=== PATIENT | male | born 1965 | race Hispanic/Latino ===

== ENCOUNTER 2020-04-01 12:40 | Inpatient (IN) | payer OTHER, SELFPAY ==
[~2020-04-01 12:40] MED LIST: Dexamethasone 20 MG/5 ML VIAL ONE; Lidocaine 1% PF 5 ML VIAL ONE; Metoclopramide HCl 10 MG/2 ML VIAL ONE; Ondansetron PF 4 MG/2 ML Vial ONE; PHENYLEPHRINE-NS 100 MCG/ML 10 ML SYRINGE ONE; PROPOFOL 200 MG/20 ML VIAL ONE
--- NOTE | 2020-04-01 13:13 | RAD ---
Portable frontal chest radiograph: 04/01/2020 COMPARISON: None HISTORY: Injury, trauma, pain FINDINGS: Supine imaging of the chest demonstrates no focal consolidation or alveolar edema. There is mild elevation of the right hemidiaphragm. Heart and mediastinal contours appear grossly unremarkable. The supine nature of this examination limits assessment for pleural fluid and pneumotho rax. The inferior lateral right hemithorax is not fully imaged on this exam. IMPRESSION: Grossly unremarkable supine portable chest radiograph.
[2020-04-01 13:17] LABS: #Basophils 0.1 thou/uL (0.0-0.2); #Monocytes 1.6 thou/uL (0.11-0.59); #Neutrophils 16.2 thou/uL (1.40-6.50); %Basophils 0.3 % (0.0-1.0); %Eosinophils 0.2 % (0.0-10.0); %Lymphocytes 5.1 % (21.0-51.0); %Monocytes 8.4 % (0.0-10.0); Hemoglobin 15.4 g/dL (14.0-18.0); Mean Corpuscular HGB CONC 33.8 g/dL (32.0-36.0); Mean Corpuscular Volume 88.8 fL (78.0-98.0); Mean Platelet Volume 9.2 fL (7.4-10.4); Platelet Count 171 thou/uL (130-400); RBC Distribution Width 12.1 % (11.5-14.5); Red Blood Cell (RBC) Count 5.11 mill/uL (4.70-6.10); White Blood Cell (WBC) Count 18.8 thou/uL (4.8-10.8)
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
[2020-04-01 13:45] LABS: Anion Gap 17 mmol/L (10-20); BUN (Urea Nitrogen) 18 mg/dL (8.4-25.7); Calc. Creatinine Clearance 0 mL/min (70-130); Calcium 8.4 mg/dL (7.8-10.44); Carbon Dioxide 18 mmol/L (22-29); Chloride 110 mmol/L (98-107); Glucose 140 mg/dL (70-105); Potassium 4.8 mmol/L (3.5-5.1); Sodium 140 mmol/L (136-145)
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
[2020-04-01] MEDS ORDERED: Fentanyl 100 MCG/2 ML VIAL ONE ×4 (17:30→21:04)
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
[2020-04-01] MEDS ORDERED: traMADol HCl 50 MG TAB PO PRN ×2 (18:32)
[2020-04-01] MEDS ORDERED: Dextrose 5% in Water 1,000 ML IV PRN (18:32)
[2020-04-01] MEDS ORDERED: Ondansetron PF 4 MG/2 ML Vial IVP PRN (18:32)
[2020-04-01] MEDS ORDERED: Ondansetron ODT 4 MG TAB PO PRN (18:32)
[2020-04-01] MEDS ORDERED: Dextrose 50% Abboject 50 ML SYRINGE SLOW IVP PRN (18:32)
[2020-04-01] MEDS ORDERED: hydrALAZINE 20 MG/ML VIAL SLOW IVP PRN (18:32)
[2020-04-01] MEDS ORDERED: Promethazine HCl 25 MG/ML VIAL SLOW IVP PRN (18:47)
[2020-04-01] MEDS ORDERED: Promethazine HCl 25 MG/ML VIAL IM PRN (18:47)
[2020-04-01] MEDS ORDERED: Ondansetron HCl/PF 4 MG/2 ML Vial IVP PRN (18:47)
[2020-04-01] MEDS ORDERED: CEFAZOLIN 2 GM in Premix Bag 1 BAG IVPB SCH (22:00)
[2020-04-01 22:59] VITALS: BMI 46.6
[2020-04-01] MEDS: Famotidine 20 MG TAB PO SCH (23:48)
[2020-04-01] MEDS: Cyclobenzaprine 10 MG TAB PO PRN (23:48)
[2020-04-01] MEDS: Acetaminophen 325 MG TAB PO SCH (23:48)
[2020-04-01] MEDS: Morphine 2 MG/ML VIAL SLOW IVP PRN (23:49)
[2020-04-01] MEDS: Ibuprofen 600 MG TAB PO SCH (23:49)
[2020-04-02] MEDS: CEFAZOLIN 2 GM in Premix Bag 1 BAG IVPB SCH ×2 (02:28→09:58)
[2020-04-02] MEDS: Ibuprofen 600 MG TAB PO SCH ×3 (05:32→19:45)
[2020-04-02] MEDS: Acetaminophen 325 MG TAB PO SCH ×3 (05:33→18:24)
[2020-04-02 06:10] LABS: #Basophils 0.1 thou/uL (0.0-0.2); #Lymphocytes 1.4 thou/uL (1.20-3.40); #Monocytes 1.1 thou/uL (0.11-0.59); #Neutrophils 10.3 thou/uL (1.40-6.50); %Basophils 0.9 % (0.0-1.0); %Eosinophils 0.1 % (0.0-10.0); %Monocytes 8.8 % (0.0-10.0); %Neutrophils 79.2 % (42.0-75.0); Mean Corpuscular HGB CONC 33.9 g/dL (32.0-36.0); Mean Corpuscular Hemoglobin 30.1 pg (27.0-31.0); Mean Corpuscular Volume 88.6 fL (78.0-98.0); Mean Platelet Volume 9.4 fL (7.4-10.4); Platelet Count 154 thou/uL (130-400); RBC Distribution Width 12.1 % (11.5-14.5); Red Blood Cell (RBC) Count 4.31 mill/uL (4.70-6.10)
[2020-04-02 06:26] LABS: Phosphorus 3.7 mg/dL (2.3-4.7)
[2020-04-02 06:31] LABS: Anion Gap 16 mmol/L (10-20); BUN (Urea Nitrogen) 22 mg/dL (8.4-25.7); Calc. Creatinine Clearance 143 mL/min (70-130); Calcium 8.2 mg/dL (7.8-10.44); Carbon Dioxide 21 mmol/L (22-29); Chloride 105 mmol/L (98-107); Glucose 149 mg/dL (70-105); Magnesium 1.8 mg/dL (1.6-2.6); Potassium 4.1 mmol/L (3.5-5.1); Sodium 138 mmol/L (136-145)
--- NOTE | 2020-04-02 07:50 | RAD ---
PORTABLE CHEST: HISTORY: Followup pneumothorax. COMPARISON: 04/01/2020. FINDINGS: No evidence of infiltrate. No evidence of pneumothorax. Heart and mediastinum unremarkable. IMPRESSION: No acute process or interval change. POS: AGW
--- NOTE | 2020-04-02 09:06 | CT ---
CT Pelvis WO Con History: Fracture evaluation Comparison: None. Findings: Indwelling Zuniga catheter with large volume gas within the urinary bladder. Large volume he morrhage within the prevesicular space. Moderate bilateral pelvic sidewall hematomas. Hemorrhage along the right inguinal canal. The pubic symphysis is widened to 15 mm. Right acetabulum: Transverse and posterior wall fracture with 3 mm calcific body on expected location of the ligamentum teres of the fovea of the femur. Posterior wall fracture involves approximately 15-20% of the total articular surface is displaced posteriorly centimeter and laterally up to 2 cm. T he posterior wall fracture is multi fragmentary. Very subtle widening of the right anterior SI joint. The right posterior SI joint is a very small fra cture of the ilium the posterior inferior SI joint at the ligamentous insertion. A subtle widening of the left anterior SI joint with small avulsion of the left sacrum at S1 and S2. Coronal oblique fracture of the left ilium extending from the SI joint to the posterior wall of the ileum without extension into the acetabulum. No left acetabular fracture. No obturator ring fracture. The coccyx is intact. No central sacral fracture aside from the SI joint ligamentous avulsions. Impression: 1. Right acetabular transverse and posterior wall fracture with comminution of the posterior wall fra cture along with 3-4 mm body in the expected location of the ligamentum teres at the femoral fovea. 2. Pubic symphyseal diastases of 15 mm. 3. Nondisplaced left ilium fracture extending from the SI joint and exiting the greater sciatic notch . 4. Small bilateral anterior superior sacral portions of the anterior site joint ligaments from osseou s avulsion. 5. Right posterior inferior SI joint ligament avulsion. 6. No vertical step-off of the SI joints. 7. Large volume hemorrhage within the prevesicular space and along the right inguinal canal. 8. Partial avulsion of the tip left ischial spine.
[2020-04-02] MEDS: Famotidine 20 MG TAB PO SCH ×2 (09:58→19:45)
[2020-04-02] MEDS: Morphine 2 MG/ML VIAL SLOW IVP PRN (12:15)
[2020-04-02] MEDS: Sodium Chloride 0.9% 1,000 ML IV SCH ×4 (14:01→23:58)
[2020-04-02] MEDS ORDERED: Magnesium 2 GM/50 ML 2 GM in Premix Bag 1 BAG IVPB SCH (17:00)
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
[2020-04-02] MEDS ORDERED: Morphine 4 MG/ML VIAL SLOW IVP PRN (21:07)
[2020-04-02] MEDS: Acetaminophen 500 MG TAB PO SCH (23:56)
[2020-04-02] MEDS: traMADol HCl 50 MG TAB PO SCH (23:56)
[2020-04-02] MEDS: Gabapentin 300 MG CAP PO SCH (23:56)
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
[2020-04-03] MEDS: traMADol HCl 50 MG TAB PO SCH ×4 (05:46→23:50)
[2020-04-03] MEDS: Ibuprofen 600 MG TAB PO SCH ×3 (05:46→19:53)
[2020-04-03] MEDS: Acetaminophen 500 MG TAB PO SCH ×4 (05:46→23:50)
[2020-04-03 07:54] LABS: ALT (SGPT) 36 U/L (8-55); AST (SGOT) 63 U/L (5-34); Albumin 3.1 g/dL (3.5-5.0); Alkaline Phosphatase 52 U/L (40-110); Anion Gap 10 mmol/L (10-20); BUN (Urea Nitrogen) 21 mg/dL (8.4-25.7); Bilirubin, Total 0.6 mg/dL (0.2-1.2); CK (CPK) 3650 U/L (30-200); Calc. Creatinine Clearance 180 mL/min (70-130); Calcium 7.3 mg/dL (7.8-10.44); Carbon Dioxide 26 mmol/L (22-29); Chloride 106 mmol/L (98-107); Globulin 2.3 g/dL (2.4-3.5); Glucose 103 mg/dL (70-105); Magnesium 2.1 mg/dL (1.6-2.6); Phosphorus 2.6 mg/dL (2.3-4.7); Potassium 3.7 mmol/L (3.5-5.1); Protein, Total 5.4 g/dL (6.0-8.3); Sodium 138 mmol/L (136-145)
[2020-04-03 08:47] LABS: #Eosinphils 0.1 thou/uL (0.0-0.7); #Lymphocytes 2.7 thou/uL (1.20-3.40); #Monocytes 0.8 thou/uL (0.11-0.59); #Neutrophils 5.7 thou/uL (1.40-6.50); %Basophils 0.4 % (0.0-1.0); %Eosinophils 0.9 % (0.0-10.0); %Lymphocytes 29.1 % (21.0-51.0); %Monocytes 8.4 % (0.0-10.0); %Neutrophils 61.2 % (42.0-75.0); Hemoglobin 10.2 g/dL (14.0-18.0); Mean Corpuscular HGB CONC 34.3 g/dL (32.0-36.0); Mean Corpuscular Volume 90.4 fL (78.0-98.0); Mean Platelet Volume 8.6 fL (7.4-10.4); Platelet Count 96 thou/uL (130-400); Platelet Morphology Comment Appears Decreased; RBC Distribution Width 11.9 % (11.5-14.5); RBC Morphology Normal; Red Blood Cell (RBC) Count 3.29 mill/uL (4.70-6.10); White Blood Cell (WBC) Count 9.4 thou/uL (4.8-10.8)
[2020-04-03] MEDS: Gabapentin 300 MG CAP PO SCH ×3 (09:03→19:53)
[2020-04-03] MEDS: Famotidine 20 MG TAB PO SCH ×2 (09:03→19:53)
[2020-04-03] MEDS: Sodium Chloride 0.9% 1,000 ML IV SCH ×3 (14:15→23:41)
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
[2020-04-03] MEDS ORDERED: Potassium Phosphate 30 MMOL in Sodium Chloride 0.9% 250 ML 250 ML IVPB SCH (19:00)
[2020-04-03] MEDS: Ascorbic Acid 500 mg Chewable Tablet PO SCH (19:53)
[2020-04-03] MEDS: Cyclobenzaprine 10 MG TAB PO PRN (19:53)
[2020-04-03] MEDS: Enoxaparin Sodium 30 MG/0.3 ML SYRINGE SC SCH (23:30)
[2020-04-04] MEDS: Ibuprofen 600 MG TAB PO SCH ×3 (03:22→23:02)
[2020-04-04] MEDS: traMADol HCl 50 MG TAB PO SCH ×4 (03:22→23:02)
[2020-04-04] MEDS: Acetaminophen 500 MG TAB PO SCH ×4 (03:22→23:01)
[2020-04-04] MEDS: Sodium Chloride 0.9% 1,000 ML IV SCH ×3 (05:39→20:32)
[2020-04-04 05:42] LABS: Hemoglobin 10.4 g/dL (14.0-18.0); Mean Corpuscular HGB CONC 33.5 g/dL (32.0-36.0); Mean Corpuscular Hemoglobin 29.9 pg (27.0-31.0); Mean Corpuscular Volume 89.3 fL (78.0-98.0); Mean Platelet Volume 8.5 fL (7.4-10.4); Platelet Count 124 thou/uL (130-400); RBC Distribution Width 11.8 % (11.5-14.5); Red Blood Cell (RBC) Count 3.46 mill/uL (4.70-6.10)
[2020-04-04 06:06] LABS: Anion Gap 12 mmol/L (10-20); BUN (Urea Nitrogen) 21 mg/dL (8.4-25.7); CK (CPK) 3507 U/L (30-200); Calc. Creatinine Clearance 187 mL/min (70-130); Calcium 7.7 mg/dL (7.8-10.44); Carbon Dioxide 25 mmol/L (22-29); Chloride 106 mmol/L (98-107); Glucose 103 mg/dL (70-105); Magnesium 2.1 mg/dL (1.6-2.6); Phosphorus 4.5 mg/dL (2.3-4.7); Potassium 4.4 mmol/L (3.5-5.1); Sodium 139 mmol/L (136-145)
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
[2020-04-04] MEDS: Ascorbic Acid 500 mg Chewable Tablet PO SCH ×2 (08:00→20:23)
[2020-04-04] MEDS: Ferrous Sulfate 325 MG TAB PO SCH ×2 (08:00→17:04)
[2020-04-04] MEDS: Enoxaparin Sodium 30 MG/0.3 ML SYRINGE SC SCH ×2 (08:06→20:23)
[2020-04-04] MEDS: Famotidine 20 MG TAB PO SCH ×2 (08:06→20:24)
[2020-04-04] MEDS: Gabapentin 300 MG CAP PO SCH ×3 (08:06→20:24)
[2020-04-04] MEDS ORDERED: CEFAZOLIN 2 GM in Premix Bag 1 BAG IVPB SCH (09:00)
[2020-04-04] MEDS ORDERED: Lidocaine 2% PF 5 ML VIAL ONE (09:01)
[2020-04-04] MEDS ORDERED: Midazolam HCl 2 mg/2 ml Vial ONE ×2 (09:01→09:28)
[2020-04-04] MEDS ORDERED: Fentanyl 100 MCG/2 ML VIAL ONE ×3 (09:01→12:48)
[2020-04-04] MEDS ORDERED: Tranexamic Acid 1,000 MG/10 ML VIAL ONE (10:31)
[2020-04-04] MEDS ORDERED: Ropivacaine 0.5% HCl/PF (150 MG/30 ML VIAL) ONE (11:17)
--- NOTE | 2020-04-04 11:45 | RAD ---
RIGHT HIP 3 VIEWS: HISTORY: Right acetabular fracture, ORIF. FINDINGS: Three views done intraoperatively demonstrate placement of metal plate and screws stabilizing the com minuted right acetabular fracture with improved position and alignment. IMPRESSION: Intraoperative open reduction internal fixation image documentation. POS: RRE
[2020-04-04] MEDS ORDERED: Promethazine HCl 25 MG/ML VIAL IM PRN (12:03)
[2020-04-04] MEDS ORDERED: Promethazine HCl 25 MG/ML VIAL SLOW IVP PRN (12:03)
[2020-04-04] MEDS ORDERED: Ondansetron HCl/PF 4 MG/2 ML Vial IVP PRN (12:03)
[2020-04-04] MEDS ORDERED: PROPOFOL 200 MG/20 ML VIAL ONE (12:12)
[2020-04-04] MEDS ORDERED: PHENYLEPHRINE-NS 100 MCG/ML 10 ML SYRINGE ONE (12:12)
[2020-04-04] MEDS ORDERED: Rocuronium Bromide 10 MG/ML (10ML VIAL) ONE (12:12)
[2020-04-04] MEDS ORDERED: Dexamethasone 20 MG/5 ML VIAL ONE (12:12)
[2020-04-04] MEDS ORDERED: Lidocaine 1% PF 5 ML VIAL ONE (12:12)
[2020-04-04] MEDS ORDERED: Ondansetron PF 4 MG/2 ML Vial ONE (12:12)
[2020-04-04] MEDS ORDERED: Glycopyrrolate 0.2 MG/ML 5 ML SYRINGE ONE (12:12)
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
[2020-04-04] MEDS: CEFAZOLIN 2 GM in Premix Bag 1 BAG IVPB SCH ×2 (15:04→23:03)
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
[2020-04-05] MEDS: Sodium Chloride 0.9% 1,000 ML IV SCH ×3 (01:47→17:47)
[2020-04-05] MEDS: Acetaminophen 500 MG TAB PO SCH ×4 (05:35→23:45)
[2020-04-05] MEDS: Ibuprofen 600 MG TAB PO SCH ×3 (05:35→22:18)
[2020-04-05] MEDS: traMADol HCl 50 MG TAB PO SCH ×4 (05:35→23:46)
[2020-04-05 05:57] LABS: Hemoglobin 8.5 g/dL (14.0-18.0); Mean Corpuscular Hemoglobin 30.2 pg (27.0-31.0); Mean Corpuscular Volume 88.8 fL (78.0-98.0); Mean Platelet Volume 8.5 fL (7.4-10.4); Platelet Count 140 thou/uL (130-400); RBC Distribution Width 11.8 % (11.5-14.5); Red Blood Cell (RBC) Count 2.83 mill/uL (4.70-6.10); White Blood Cell (WBC) Count 8.7 thou/uL (4.8-10.8)
[2020-04-05 06:20] LABS: Anion Gap 10 mmol/L (10-20); BUN (Urea Nitrogen) 20 mg/dL (8.4-25.7); CK (CPK) 2462 U/L (30-200); Calc. Creatinine Clearance 177 mL/min (70-130); Calcium 7.6 mg/dL (7.8-10.44); Carbon Dioxide 27 mmol/L (22-29); Chloride 106 mmol/L (98-107); Glucose 112 mg/dL (70-105); Magnesium 2.1 mg/dL (1.6-2.6); Phosphorus 3.6 mg/dL (2.3-4.7); Potassium 4.2 mmol/L (3.5-5.1); Sodium 139 mmol/L (136-145)
[2020-04-05] MEDS: Ferrous Sulfate 325 MG TAB PO SCH ×2 (08:49→17:47)
[2020-04-05] MEDS: Ascorbic Acid 500 mg Chewable Tablet PO SCH ×2 (08:49→20:03)
[2020-04-05] MEDS: Gabapentin 300 MG CAP PO SCH ×3 (08:49→20:03)
[2020-04-05] MEDS: Famotidine 20 MG TAB PO SCH ×2 (08:49→20:03)
[2020-04-05] MEDS: Enoxaparin Sodium 30 MG/0.3 ML SYRINGE SC SCH ×2 (08:49→20:03)
--- NOTE | 2020-04-05 13:34 | RAD ---
EXAM: Chest one view: HISTORY: Follow-up small pneumothorax. COMPARISON: 04/02/2020 chest x-ray FINDINGS: Heart size: Within normal limits. Lungs: Minimal linear parenchymal changes in the bases probably minimal subsegmental atelectasis. No evidence for confluent lobar pneumonia, significant pleural effusion, acute edema, or pneumothorax , or other significant acute process. IMPRESSION: Stable exam.
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
[2020-04-06] MEDS: traMADol HCl 50 MG TAB PO SCH ×3 (05:05→16:53)
[2020-04-06] MEDS: Acetaminophen 500 MG TAB PO SCH ×3 (05:05→16:53)
[2020-04-06] MEDS: Ibuprofen 600 MG TAB PO SCH ×3 (05:05→22:06)
[2020-04-06 05:37] LABS: Hemoglobin 8.5 g/dL (14.0-18.0); Mean Corpuscular HGB CONC 34.1 g/dL (32.0-36.0); Mean Corpuscular Hemoglobin 30.4 pg (27.0-31.0); Mean Corpuscular Volume 89.1 fL (78.0-98.0); Platelet Count 132 thou/uL (130-400); RBC Distribution Width 11.8 % (11.5-14.5); Red Blood Cell (RBC) Count 2.79 mill/uL (4.70-6.10); White Blood Cell (WBC) Count 7.9 thou/uL (4.8-10.8)
[2020-04-06] MEDS: Enoxaparin Sodium 30 MG/0.3 ML SYRINGE SC SCH ×2 (09:06→20:01)
[2020-04-06] MEDS: Famotidine 20 MG TAB PO SCH ×2 (09:07→20:01)
[2020-04-06] MEDS: Gabapentin 300 MG CAP PO SCH ×3 (09:07→20:01)
[2020-04-06] MEDS: Ferrous Sulfate 325 MG TAB PO SCH ×2 (09:07→16:53)
[2020-04-06] MEDS: Ascorbic Acid 500 mg Chewable Tablet PO SCH ×2 (09:08→20:01)
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
[2020-04-06 14:47] LABS: Anion Gap 9 mmol/L (10-20); BUN (Urea Nitrogen) 16 mg/dL (8.4-25.7); Calc. Creatinine Clearance 197 mL/min (70-130); Calcium 7.9 mg/dL (7.8-10.44); Carbon Dioxide 29 mmol/L (22-29); Chloride 103 mmol/L (98-107); Glucose 114 mg/dL (70-105); Potassium 4.2 mmol/L (3.5-5.1); Sodium 137 mmol/L (136-145)
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
[2020-04-06] MEDS ORDERED: Polyethylene Glycol 3350 17 GM Packet PO SCH (15:30)
[2020-04-06] MEDS: Senokot S 8.6-50 MG TAB PO SCH (20:01)
[2020-04-06] MEDS: Cyclobenzaprine 10 MG TAB PO PRN (20:01)
[2020-04-06] MEDS ORDERED: Acetaminophen/Codeine 30-300mg Tablet PO PRN (21:52)
[2020-04-06] MEDS: Acetaminophen/Codeine 30-300mg Tablet PO PRN (22:06)
[2020-04-06] MEDS: Acetaminophen 325 MG TAB PO SCH (23:10)
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
[2020-04-07] MEDS: Cyclobenzaprine 10 MG TAB PO PRN ×2 (05:06→19:53)
[2020-04-07] MEDS: Acetaminophen 325 MG TAB PO SCH ×4 (05:06→23:10)
[2020-04-07] MEDS: Ibuprofen 600 MG TAB PO SCH ×3 (05:06→23:10)
[2020-04-07 05:36] LABS: Hemoglobin 8.2 g/dL (14.0-18.0); Mean Corpuscular HGB CONC 33.3 g/dL (32.0-36.0); Mean Corpuscular Hemoglobin 29.7 pg (27.0-31.0); Mean Corpuscular Volume 89.2 fL (78.0-98.0); Mean Platelet Volume 8.2 fL (7.4-10.4); Platelet Count 149 thou/uL (130-400); RBC Distribution Width 12.2 % (11.5-14.5); Red Blood Cell (RBC) Count 2.75 mill/uL (4.70-6.10); White Blood Cell (WBC) Count 8.4 thou/uL (4.8-10.8)
[2020-04-07] MEDS: Enoxaparin Sodium 30 MG/0.3 ML SYRINGE SC SCH ×2 (08:25→19:53)
[2020-04-07] MEDS: Senokot S 8.6-50 MG TAB PO SCH ×2 (08:25→19:53)
[2020-04-07] MEDS: Polyethylene Glycol 3350 17 GM Packet PO SCH (08:25)
[2020-04-07] MEDS: Ascorbic Acid 500 mg Chewable Tablet PO SCH ×2 (08:25→19:53)
[2020-04-07] MEDS: Gabapentin 300 MG CAP PO SCH ×3 (08:26→19:54)
[2020-04-07] MEDS: Famotidine 20 MG TAB PO SCH ×2 (08:26→19:53)
[2020-04-07] MEDS: Ferrous Sulfate 325 MG TAB PO SCH ×2 (08:26→17:50)
[2020-04-07] MEDS: Acetaminophen/Codeine 30-300mg Tablet PO PRN ×3 (08:26→23:10)
--- NOTE | 2020-04-07 10:02 | RAD ---
AP pelvis one view HISTORY: Pelvic fracture. FINDINGS: Interval operative fixation of the right acetabulum. Transverse component or fracture, nond isplaced, again demonstrated. Thin linear fragment projecting immediately inferior to the femoral head correlates with a fragment detailed on CT from 04/02/2020. Widening of the pubic symphysis favored to be stable. Sacroiliac joints unremarkable. IMPRESSION : Interval operative fixation of the right acetabulum. Pubic symphyseal diastases, stable.
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
[2020-04-08] MEDS: Ibuprofen 600 MG TAB PO SCH ×2 (05:53→15:02)
[2020-04-08] MEDS: Acetaminophen 325 MG TAB PO SCH ×3 (05:54→18:05)
[2020-04-08] MEDS: Cyclobenzaprine 10 MG TAB PO PRN (05:54)
[2020-04-08] MEDS: Famotidine 20 MG TAB PO SCH ×2 (08:24→20:38)
[2020-04-08] MEDS: Senokot S 8.6-50 MG TAB PO SCH ×2 (08:24→19:59)
[2020-04-08] MEDS: Ascorbic Acid 500 mg Chewable Tablet PO SCH ×2 (08:24→20:38)
[2020-04-08] MEDS: Gabapentin 300 MG CAP PO SCH ×3 (08:24→20:38)
[2020-04-08] MEDS: Ferrous Sulfate 325 MG TAB PO SCH ×2 (08:25→18:06)
[2020-04-08] MEDS: Polyethylene Glycol 3350 17 GM Packet PO SCH (08:25)
[2020-04-08] MEDS: Enoxaparin Sodium 30 MG/0.3 ML SYRINGE SC SCH ×2 (08:25→20:39)
[2020-04-08] MEDS: Acetaminophen/Codeine 30-300mg Tablet PO SCH ×2 (15:02→20:37)
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
[2020-04-09] MEDS: Acetaminophen 325 MG TAB PO SCH ×3 (00:40→12:38)
[2020-04-09] MEDS: Ibuprofen 600 MG TAB PO SCH ×3 (00:40→16:11)
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
[2020-04-09] MEDS: Acetaminophen/Codeine 30-300mg Tablet PO SCH ×3 (03:11→16:10)
[2020-04-09] MEDS: Cyclobenzaprine 10 MG TAB PO PRN (05:45)
[2020-04-09] MEDS: Gabapentin 300 MG CAP PO SCH ×2 (08:40→16:11)
[2020-04-09] MEDS: Ascorbic Acid 500 mg Chewable Tablet PO SCH (08:40)
[2020-04-09] MEDS: Enoxaparin Sodium 30 MG/0.3 ML SYRINGE SC SCH (08:42)
[2020-04-09] MEDS: Senokot S 8.6-50 MG TAB PO SCH (08:42)
[2020-04-09] MEDS: Polyethylene Glycol 3350 17 GM Packet PO SCH (08:43)
[2020-04-09] MEDS ORDERED: Ferrous Sulfate 325 MG TAB PO SCH (09:00)
[2020-04-09 17:27] VITALS: BP 126/72; TEMP 98.1
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
== END 2020-04-09 18:40 | disposition home or self-care (01) | DRG 958 ==
LOC: ERS 12:40 → ERHOLD 14:33 → SURG B 18:35 → SURG A 20:01
PROVIDERS: ADMIT Family Medicine; ATTEND Family Medicine
PROC: 0LQQ0ZZ Repair Right Knee Tendon, Open Approach (ICD-10-PCS; 2020-04-01)
PROC: 0JBN0ZZ Excision of Right Lower Leg Subcutaneous Tissue and Fascia, Open Approach (ICD-10-PCS; 2020-04-01)
PROC: 0QS404Z Reposition Right Acetabulum with Internal Fixation Device, Open Approach (ICD-10-PCS; principal; 2020-04-04)
DX: S32.82XA Multiple fractures of pelvis without disruption of pelvic ring, initial encounter for closed fracture (principal); S27.321A Contusion of lung, unilateral, initial encounter; S82.001B Unspecified fracture of right patella, initial encounter for open fracture type I or II; S73.014A Posterior dislocation of right hip, initial encounter; S27.0XXA Traumatic pneumothorax, initial encounter; S76.121A Laceration of right quadriceps muscle, fascia and tendon, initial encounter; M62.82 Rhabdomyolysis; S32.302A Unspecified fracture of left ilium, initial encounter for closed fracture; V44.5XXA Car driver injured in collision with heavy transport vehicle or bus in traffic accident, initial encounter; Y92.411 Interstate highway as the place of occurrence of the external cause; F17.210 Nicotine dependence, cigarettes, uncomplicated; S33.2XXA Dislocation of sacroiliac and sacrococcygeal joint, initial encounter; S30.0XXA Contusion of lower back and pelvis, initial encounter; S81.011A Laceration without foreign body, right knee, initial encounter
CPT/HCPCS: 36415; 71045; 72170; 72190; 72192; 76000; 80048; 80053; 82550; 83735; 84100; 85025; 85027; 86850; 86900; 86901; 94640; C1713; G0390; J0690; J1100; J1650; J2001; J2250; J2270; J2405; J2704; J2765; J2795; J3010; J3475; J7050; J7620